=== PATIENT | male | born 1995 | race Caucasian/White ===

== ENCOUNTER 2017-01-23 09:28 | Emergency (ER) | payer OTHER ==
[2017-01-23 10:05] VITALS: BP 147/95
--- NOTE | 2017-01-23 11:02 | UC ---
Throat Pain/Nasal Justen HPI - HPI Summary HPI Summary: 21 male presents with complaints of feeling fatigued, cough, sore throat and nasal congestion that has been ongoing for the past 4 days. Patient states the symptoms have not gotten worse however they have not improved. Took some cold sinus medication without much relief. States he did wake up feeling more energized today. Denies vomiting and abdominal pain. Admits to some intermittent headache. No other complaints. No PMHx. Rest of roommate are also sick with similar symptoms. - History of Current Complaint Chief Complaint: UCGeneralIllness Stated Complaint: SORE THROAT,CONGESTION Time Seen by Provider: 01/23/17 10:20 Hx Obtained From: Patient Onset/Duration: Sudden Onset, Lasting Days, Still Present Severity: Mild Pain Intensity: 2 Pain Scale Used: 0-10 Numeric Cough: Nonproductive Associated Signs & Symptoms: Positive: Dysphagia, Nasal Discharge - Epiglottits Risk Factors Epiglottis Risk Factors: Negative - Allergies/Home Medications Allergies/Adverse Reactions: Allergies Allergy/AdvReac Type Severity Reaction Status Date / Time Amoxicillin Allergy Rash And Verified 04/17/15 14:45 Itching Home Medications: Home Medications Acetaminophen-Caffeine [Excedrin Tension Headache 500-65 mg] 2 tab PO Q12H PRN 01/23/17 [History Confirmed 01/23/17] Dextromethorphan-Phenylephrine [Vicks Dayquil Cold & Flu] 2 cap PO Q6H PRN 01/23 [History Confirmed 01/23/17] Omeprazole CAP* [Prilosec CAP* 20 MG] 40 mg PO DAILY PRN 01/23/17 [History Confirmed 01/23/17] PMH/Surg Hx/FS Hx/Imm Hx - Additional Past Medical History Additional PMH: Denies DM HTN and asthma - Surgical History Surgical History: None - Family History Known Family History: Positive: Cardiac Disease, Hypertension, Other - cancer, depression - Social History Alcohol Use: Occasionally Substance Use Type: None Substance Use Comment - Amount & Last Used: occasional once a month Smoking Status (MU): Never Smoked Tobacco - Immunization History Most Recent Influenza Vaccination: Not the 2016/2017 Season Review of Systems Constitutional: Chills, Fatigue Skin: Negative Eyes: Negative ENT: Sore Throat, Nasal Discharge, Sinus Congestion Respiratory: Cough Cardiovascular: Negative Gastrointestinal: Negative Musculoskeletal: Negative Neurological: Headache All Other Systems Reviewed And Are Negative: Yes Physical Exam Triage Information Reviewed: Yes Appearance: Well-Appearing, No Pain Distress, Well-Nourished Vital Signs: Initial Vital Signs Temp 98.4 F 01/23/17 09:44 Pulse 82 01/23/17 09:44 Resp 16 01/23/17 09:44 BP 147/95 01/23/17 09:44 Pulse Ox 100 01/23/17 09:44 Vital Signs Reviewed: Yes Eyes: Positive: Conjunctiva Clear ENT: Positive: Normal ENT inspection, Hearing grossly normal, Pharynx normal, TMs normal. Negative: Tonsillar swelling, Tonsillar exudate, Muffled/hoarse voice Neck: Positive: Supple, Nontender, No Lymphadenopathy Respiratory: Positive: Chest non-tender, Lungs clear, Normal breath sounds, No respiratory distress, No accessory muscle use. Negative: Respiratory distress, Decreased breath sounds, Stridor, Wheezing Cardiovascular: Positive: RRR, No Murmur, Pulses Normal, Brisk Capillary Refill Abdomen Description: Positive: Nontender, Soft Bowel Sounds: Positive: Present Musculoskeletal: Positive: Strength Intact, ROM Intact, No Edema Neurological: Positive: Alert Skin Exam: Normal Throat Pain/Nasal Course/Dx - Course Course Of Treatment: rapid strep and flu obtained although unlikely. both negative. appears patient is suffering from rhinosinusitis. will treat symptomatically with flonase, claritin, emergen-c and mucinex. saline rinses, hot showers, tylenol/ibuprofen for headache. rest, fluids. follow up. aware of worsening signs and symptoms to watch out for. - Differential Dx/Diagnosis Differential Diagnosis/HQI/PQRI: Influenza, Laryngitis, Mononucleosis, Otitis Media, Pharyngitis, Sinusitis, URI Provider Diagnoses: URI Discharge - Discharge Plan Condition: Stable Disposition: HOME Patient Education Materials: Upper Respiratory Infection (ED) Referrals: Non Staff,Doctor [Primary Care Provider] - Additional Instructions: flonase, claritin, emergen-c and mucinex. saline rinses, hot showers, tylenol/ibuprofen for headache. rest, fluids. follow up. return if symptoms worsen or do not improve after 2-3 weeks.
== END 2017-01-23 11:21 | disposition home or self-care (01) ==
LOC: UCCORT 09:28 → MERGE 09:28 → UCCORT 11:21
DX: J06.9 Acute upper respiratory infection, unspecified (principal); Z88.1 Allergy status to other antibiotic agents
CPT/HCPCS: 87502; 87651; 99202; G0463